=== PATIENT | male | born 1990 | race Caucasian/White ===

== ENCOUNTER 2023-05-29 12:24 | Emergency (ER) | payer SELFPAY ==
[~2023-05-29] VITALS: Ht 193 cm; Wt 118.0 kg
[2023-05-29 12:32] VITALS: BP 149/70; PULSE 77; RESP 16; TEMP 98.9; O2SAT 100
[2023-05-29] MEDS ORDERED: NAPR-679 MT (13:20)
[2023-05-29] MEDS ORDERED: LIDO700A15 TP (13:20)
[2023-05-29] MEDS ORDERED: LIDOCAINE 5% PATCH TOP SCH (13:30)
[2023-05-29] MEDS ORDERED: KETOROLAC 60MG/2ML VIAL IM ONE (13:30)
== END 2023-05-29 15:09 | disposition left against medical advice (07) ==
LOC: ER 12:40
DX: S29.011A Strain of muscle and tendon of front wall of thorax, initial encounter (principal); X58.XXXA Exposure to other specified factors, initial encounter; Y93.89 Activity, other specified; Y92.89 Other specified places as the place of occurrence of the external cause; Y99.8 Other external cause status
CPT/HCPCS: 99281